=== PATIENT | female | born 1980 | race Caucasian/White ===

== ENCOUNTER 2018-12-17 14:34 | Emergency (ER) | payer BC, OTHER ==
[~2018-12-17] VITALS: Ht 172.7 cm; Wt 84.8 kg
[2018-12-17] MEDS ORDERED: SYNTHROID137 MCG ORAL (14:45)
[2018-12-17] MEDS ORDERED: ALBUTEROL0.63 MG/3 HHN (14:45)
[2018-12-17] MEDS ORDERED: HYDROXYCHLOROQ200 M1 PO (14:49)
[2018-12-17 14:54] VITALS: BP 137/60
--- NOTE | 2018-12-17 14:55 | NUR ---
ED Nurse Note: Pt came in from home due to flu-like symptoms: coughing, headache, bodyache, fever. No fever upon arrival. AOx4, HR 108, ERMD aware; other VSS. Monitor attached. Will cont to monitor.
[2018-12-17] MEDS ORDERED: Solu-MEDROL 125mg Inj IVP ONE (15:00)
[2018-12-17] MEDS ORDERED: Acetaminophen 500mg (ES) tab ORAL ONE (15:00)
--- NOTE | 2018-12-17 15:06 | Emergency Room Report ---
History of Present Illness General Chief Complaint: Flu Like Symptoms Source: Patient Present Illness HPI The patient presents with shortness of breath and chest pressure. She's been taking Tamiflu for 2 full days. She was seen at urgent care and got an x-ray and also a throat swab. They told her she had influenza. Her whole family is sick. She's not taking any cough syrup or steroids at this time. History of asthma. She's been using her nebulizer every 3-4 hours and feels that she's not wheezing at this time but still feels heaviness in her chest. She's also had muscle aches fevers and chills. She denies any productive cough. There's been no nausea vomiting or diarrhea. Her last period was one week ago and normal for her. Patient has a history of DVT and is not taking any anticoagulants. The patient also has a history of lupus. Allergies: Coded Allergies: LATEX, NATURAL RUBBER (Verified Allergy, Unknown, 12/17/18) Patient History Past Medical History: see triage record Social History: Denies: smoking, alcohol use, drug use Social History Narrative with 2 children Last Menstrual Period: A WEEK AGO Now: No Reviewed Nursing Documentation: PMH: Agreed; PSxH: Agreed Nursing Documentation-PMH Hx Asthma: Yes Review of Systems All Other Systems: negative except mentioned in HPI Physical Exam Vital Signs Date Time Temp Pulse Resp B/P (MAP) Pulse Ox O2 Delivery O2 Flow Rate FiO2 12/17/18 14:40 98.4 103 23 112/67 96 Room Air Sp02 EP Interpretation: reviewed, normal General Appearance: well appearing, no apparent distress, GCS 15 Head: normocephalic, atraumatic Eyes: bilateral eye normal inspection, bilateral eye PERRL ENT: normal pharynx, moist mucus membranes Neck: supple Respiratory: chest non-tender, rales - Left base, other - no wheezing Cardiovascular #1: no edema, tachycardia Cardiovascular #2: 2+ radial (R) Gastrointestinal: normal inspection, normal bowel sounds, non tender, no mass, non-distended Genitourinary: no CVA tenderness Musculoskeletal: back normal, gait/station normal, normal range of motion, no calf tenderness, Marco's Sign negative Neurologic: alert, oriented x3, grossly normal Psychiatric: mood/affect normal Skin: normal inspection, warm/dry Medical Decision Making Diagnostic Impression: Primary Impression: Bronchospasm Additional Impression: UTI (urinary tract infection) Qualified Codes: N30.00 - Acute cystitis without hematuria ER Course Patient presents with chest pressure and tachycardia while taking Tamiflu with fevers and chills. Differential includes pneumonia, influenza, exacerbation of asthma, pulmonary embolus, pericarditis amongst others. The patient will be evaluated with EKG, chest x-ray and labs including d-dimer and lactate. We will also be setting off an influenza swab. She's not wheezing at this time. She will receive a dose of Solu-Medrol and IV hydration. In addition Tylenol will be given. The fact she has a history of DVT and is tachycardic is disconcerting even though her oxygen saturation is 100%. EKG normal sinus rhythm without injury. Chest x-ray clear with no left sided infiltrate. Labs with normal CBC. CMP normal. D-dimer negative. Urinalysis with pyuria. Influenza swab negative. Rocephin is given. The patient requested breathing treatment and albuterol and Atrovent were given with good results. Discussed with patient results and treatment plan. She is remarkably improved and feels the pressure is better. Patient is stable for outpatient observation and treatment. Laboratory Tests Test 12/17/18 15:05 White Blood Count 10.1 K/UL (4.8-10.8) Red Blood Count 4.64 M/UL (4.20-5.40) Hemoglobin 13.8 G/DL (12.0-16.0) Hematocrit 41.6 % (37.0-47.0) Mean Corpuscular Volume 90 FL (80-99) Mean Corpuscular Hemoglobin 29.7 PG (27.0-31.0) Mean Corpuscular Hemoglobin Concent 33.1 G/DL (32.0-36.0) Red Cell Distribution Width 11.9 % (11.6-14.8) Platelet Count 282 K/UL (150-450) Mean Platelet Volume 7.8 FL (6.5-10.1) Neutrophils (%) (Auto) 77.9 % (45.0-75.0) H Lymphocytes (%) (Auto) 11.7 % (20.0-45.0) L Monocytes (%) (Auto) 8.4 % (1.0-10.0) Eosinophils (%) (Auto) 0.9 % (0.0-3.0) Basophils (%) (Auto) 1.1 % (0.0-2.0) Prothrombin Time 10.4 SEC (9.30-11.50) Prothrombin Time INR 1.0 (0.9-1.1) PTT 33 SEC (23-33) D-Dimer 0.39 mg/L FEU (0.00-0.49) Urine Color Yellow Urine Appearance Slightly cloudy Urine pH 6 (4.5-8.0) Urine Specific [place] 1.020 (1.005-1.035) Urine Protein 1+ (NEGATIVE) H Urine Glucose (UA) Negative (NEGATIVE) Urine Ketones 4+ (NEGATIVE) H Urine Blood 3+ (NEGATIVE) H Urine Nitrite Negative (NEGATIVE) Urine Bilirubin Negative (NEGATIVE) Urine Urobilinogen Normal MG/DL (0.0-1.0) Urine Leukocyte Esterase 2+ (NEGATIVE) H Urine RBC 5-10 /HPF (0 - 2) H Urine WBC 20-30 /HPF (0 - 2) H Urine Squamous Epithelial Cells Many /LPF (NONE/OCC) H Urine Bacteria Few /HPF (NONE) Urine HCG, Qualitative Negative (NEGATIVE) Sodium Level 139 MMOL/L (136-145) Potassium Level 3.5 MMOL/L (3.5-5.1) Chloride Level 102 MMOL/L (98-107) Carbon Dioxide Level 23 MMOL/L (21-32) Anion Gap 14 mmol/L (5-15) Blood Urea Nitrogen 10 mg/dL (7-18) Creatinine 0.9 MG/DL (0.55-1.30) Estimate Glomerular Filtration Rate > 60 mL/min (>60) Glucose Level 94 MG/DL (74-106) Lactic Acid Level 0.90 mmol/L (0.4-2.0) Calcium Level 9.2 MG/DL (8.5-10.1) Magnesium Level 1.9 MG/DL (1.8-2.4) Total Bilirubin 0.6 MG/DL (0.2-1.0) Aspartate Amino Transferase (AST) 10 U/L (15-37) L Alanine Aminotransferase (ALT) 22 U/L (12-78) Alkaline Phosphatase 42 U/L (46-116) L Total Creatine Kinase 22 U/L (26-308) L Pro-B-Type Natriuretic Peptide 33 pg/mL (0-125) Total Protein 7.8 G/DL (6.4-8.2) Albumin 3.7 G/DL (3.4-5.0) Globulin 4.1 g/dL Albumin/Globulin Ratio 0.9 (1.0-2.7) L Microbiology Date/Time Source Procedure Growth Status 12/17/18 15:05 Nasal Nares Influenza Types A,B Antigen (MIKAL) - Final Complete EKG Diagnostic Results Rate: normal Rhythm: NSR ST Segments: no acute changes - Prolonged QT corrected 482 ms Rhythm Strip Diag. Results Rhythm: no PVC's, no ectopy, other - Sinus tachycardia Chest X-Ray Diagnostic Results Chest X-Ray Diagnostic Results : Chest X-Ray Ordered: Yes # of Views/Limited/Complete: 1 View Indication: Other EP Interpretation: Yes Interpretation: no consolidation, no effusion, no pneumothorax Impression: No acute disease Electronically Signed by: Electronically signed by Jay Luong MD Last Vital Signs Date Time Temp Pulse Resp B/P (MAP) Pulse Ox O2 Delivery O2 Flow Rate FiO2 12/17/18 17:10 98.4 84 20 110/62 100 Room Air 21 Status: improved Disposition: HOME, SELF-CARE Condition: Improved Scripts Prednisone* (PREDNISONE*) 20 Mg Tablet 40 MG ORAL DAILY, #10 TAB Prov: Jay Luong MD 12/17/18 Acetaminophen (Tylenol) 325 Mg Tablet 650 MG ORAL Q6H PRN for Prn Pain/Headache/Temp > 101, #20 TAB 0 Refills Prov: Jay Luong MD 12/17/18 Cephalexin* (KEFLEX*) 500 Mg Capsule 500 MG ORAL EVERY 6 HOURS, #28 CAP Prov: Jay Luong MD 12/17/18 Guaifenesin/Codeine Phos* (ROBITUSSIN AC*) 118 Ml Liquid 5 ML ORAL Q6H PRN for For Cough, #90 ML 0 Refills Prov: Jay Luong MD 12/17/18 Ipratropium [place] 0.5MG/2.5ML (IPRATROPIUM BROMIDE 0.5MG/2.5ML) 0.2 Mg/1 Ml Solution 0.5 MG HHN Q6H PRN for Shortness of Breath, #28 EA Prov: Jay Luong MD 12/17/18 Jay Luong MD Dec 17, 2018 15:06
--- NOTE | 2018-12-17 15:12 | NUR ---
ED Nurse Note: Blood, urine, and swab done and sent to lab.
[2018-12-17 15:18] LABS: BASOPHILS % (AUTO) 1.1 % (0.0-2.0); EOSINOPHILS % (AUTO) 0.9 % (0.0-3.0); HEMATOCRIT 41.6 % (37.0-47.0); HEMOGLOBIN 13.8 G/DL (12.0-16.0); LYMPHOCYTES % (AUTO) 11.7 % (20.0-45.0); MEAN CORPUSCULAR VOLUME 90 FL (80-99); MONOCYTES % (AUTO) 8.4 % (1.0-10.0); NEUTROPHILS % (AUTO) 77.9 % (45.0-75.0); PLATELET COUNT 282 K/UL (150-450); RED BLOOD COUNT 4.64 M/UL (4.20-5.40); RED CELL DISTRIBUTION WIDTH 11.9 % (11.6-14.8); WHITE BLOOD COUNT 10.1 K/UL (4.8-10.8)
[2018-12-17 15:29] LABS: APPEARANCE,URINE SLIGHTLY CLOUDY; BILIRUBIN, URINE NEGATIVE (NEGATIVE); GLUCOSE, URINE (UA) NEGATIVE (NEGATIVE); KETONES,URINE 4+ (NEGATIVE); LEUKOCYTE ESTERASE ,URINE 2+ (NEGATIVE); NITRITE,URINE NEGATIVE (NEGATIVE); PH,URINE 6 (4.5-8.0); PROTEIN,URINE 1+ (NEGATIVE); UROBILINOGEN,URINE NORMAL MG/DL (0.0-1.0)
[2018-12-17 15:31] LABS: ANION GAP 14 mmol/L (5-15); BLOOD UREA NITROGEN 10 mg/dL (7-18); CALCIUM 9.2 MG/DL (8.5-10.1); CARBON DIOXIDE 23 MMOL/L (21-32); CHLORIDE 102 MMOL/L (98-107); CREATININE 0.9 MG/DL (0.55-1.30); POTASSIUM 3.5 MMOL/L (3.5-5.1); SODIUM 139 MMOL/L (136-145)
[2018-12-17 15:36] LABS: COLOR,URINE YELLOW
[2018-12-17 15:42] LABS: ALANINE AMINOTRANSFERASE 22 U/L (12-78); ALBUMIN 3.7 G/DL (3.4-5.0); ALBUMIN/GLOBULIN RATIO 0.9 (1.0-2.7); ALKALINE PHOSPHATASE 42 U/L (46-116); ASPARTATE AMINO TRANSFERASE 10 U/L (15-37); BILIRUBIN,TOTAL 0.6 MG/DL (0.2-1.0); CREATINE KINASE 22 U/L (26-308)
--- NOTE | 2018-12-17 15:53 | NUR ---
ED Nurse Note: X-ray at bedside for imaging.
[2018-12-17] MEDS ORDERED: Ipratropium 0.02% Inh Soln 2.5ml UD HHN ONE (16:00)
[2018-12-17] MEDS ORDERED: Albuterol ud Inhalation HHN ONE (16:00)
[2018-12-17] MEDS ORDERED: cefTRIAXone 1 GM in NS 55 ML IVPB ONE (16:00)
--- NOTE | 2018-12-17 16:00 | NUR ---
ED Nurse Note: RT at bedside for breathing tx.
[2018-12-17 16:17] VITALS: BP 103/56
[2018-12-17] MEDS ORDERED: CEPHALEXIN500 MG ORAL (16:52)
[2018-12-17] MEDS ORDERED: TYLENOL325 MG ORAL (16:52)
[2018-12-17] MEDS ORDERED: PREDNISONE20 MG ORAL (16:52)
[2018-12-17] MEDS ORDERED: IPRATROPIU0.2 MG/1 M HHN (16:52)
[2018-12-17] MEDS ORDERED: GUAIFENESIN-CO118 M1 ORAL (16:52)
[2018-12-17 17:09] VITALS: BP 110/62
--- NOTE | 2018-12-17 17:09 | NUR ---
ED Nurse Note: Pt is clear to be discharged by ERMD. Discharge paper and prescription given, pt verbalized understanding of discharge instruction. AOx4, VSS Wristband and IV line removed. Pt ambulated out with steady gait with all belongings.
[2018-12-17 17:10] VITALS: BP 110/62
--- NOTE | 2018-12-18 12:12 | Diagnostic Imaging Report ---
Indication: Dyspnea Technique: XRAY Chest 1v Comparison: None Findings: Heart size and mediastinal contours are within normal limits given technique. Question subtle peribronchial thickening. There is no focal consolidation, pneumothorax or pleural effusion. Osseous structures demonstrate no acute abnormality. Impression: Question subtle peribronchial thickening, a finding which may indicate small airway disease/bronchitis. Correlate clinically. No focal airspace consolidation, pleural effusion or pneumothorax.
--- NOTE | 2018-12-28 14:26 | Cardiology Report ---
APPROVED REPORT EKG Measurement Heart [id number] Normal sinus rhythm Prolonged QT Abnormal ECG
== END 2018-12-17 17:10 | disposition home or self-care (01) ==
LOC: EMR 15:05
DX: J98.01 Acute bronchospasm (principal); N39.0 Urinary tract infection, site not specified; J45.909 Unspecified asthma, uncomplicated; Z91.040 Latex allergy status
CPT/HCPCS: 36415; 71045; 80053; 81003; 81025; 82550; 83605; 83735; 83880; 85025; 85379; 85610; 85730; 86710; 87086; 93005; 94640; 94664; 96361; 96365; 96375; 99284; J0696; J2930

== ENCOUNTER 2018-12-19 12:00 | Emergency (ER) | payer OTHER, MEDICAID ==
[~2018-12-19] VITALS: Ht 172.7 cm; Wt 85.3 kg
[~2018-12-19 12:00] MED LIST: ALBUTEROL0.63 MG/3 HHN; CEPHALEXIN500 MG ORAL; GUAIFENESIN-CO118 M1 ORAL; HYDROXYCHLOROQ200 M1 PO; IPRATROPIU0.2 MG/1 M HHN; PREDNISONE20 MG ORAL; SYNTHROID137 MCG ORAL; TYLENOL325 MG ORAL
[2018-12-19] MEDS ORDERED: Oseltamivir 75mg cap ORAL ONE (12:15)
[2018-12-19] MEDS ORDERED: Promethazine/Codeine 5ml UD ORAL ONE (12:15)
[2018-12-19] MEDS ORDERED: Albuterol ud Inhalation HHN ONE (12:15)
[2018-12-19] MEDS ORDERED: Ketorolac 30mg Inj IV ONE (12:15)
--- NOTE | 2018-12-19 12:15 | NUR ---
ED Nurse Note: Pt came in from home due to SOB, chest tightness since last night around 2100, pt was in [facility] on 12/17/18 for the same symptoms, ruled out Bronchospasm, was prescribed breathing tx and Solu-medrol and Guaifenesin, symptoms have not gotten any better. SAT 100% RA upon arrival. HR 101, ERMD aware. Monitor attached. Will cont to monitor.
--- NOTE | 2018-12-19 12:17 | Emergency Room Report ---
History of Present Illness General Chief Complaint: Upper Respiratory Illness Source: Patient Present Illness HPI Patient presents with worsening chest tightness and shortness of breath Patient was here several days ago was found to have bronchitis possible early pneumonia patient reports that she was stopped on her Tamiflu Is on Keflex last night she felt increased pain and palpitation paramedics had responded to her house However patient was not brought to the emergency room today as her symptoms continue to worsen she presents to the ER denies any vomiting or diarrhea She has off-and-on fever and chills subjectively Patient reports pleurisy and tightness in the chest area Also sore throat denies any posterior neck pain Allergies: Coded Allergies: LATEX, NATURAL RUBBER (Verified Allergy, Unknown, 12/17/18) Patient History Past Medical History: see triage record Pertinent Family History: none Last Menstrual Period: 12/11/18 Now: No Reviewed Nursing Documentation: PMH: Agreed; PSxH: Agreed Nursing Documentation-PMH Hx Cardiac Problems: Yes - DVT Hx Asthma: Yes Review of Systems All Other Systems: negative except mentioned in HPI Physical Exam Vital Signs Date Time Temp Pulse Resp B/P (MAP) Pulse Ox O2 Delivery O2 Flow Rate FiO2 12/19/18 12:02 97.2 105 24 110/71 98 Room Air Sp02 EP Interpretation: reviewed, normal General Appearance: mild distress - Appears anxious Head: normocephalic, atraumatic Eyes: bilateral eye PERRL, bilateral eye EOMI ENT: hearing grossly normal, normal pharynx, TMs + canals normal, uvula midline Neck: full range of motion, supple, no meningismus, no bony tend Respiratory: no retraction, no accessory muscle use, crackles, other - Tachypneic Cardiovascular #1: normal peripheral pulses, regular rate, rhythm, no edema, no gallop, no JVD, no murmur Gastrointestinal: normal bowel sounds, non tender, soft, no mass, no organomegaly, non-distended, no guarding, no hernia, no pulsatile mass, no rebound Genitourinary: no CVA tenderness Musculoskeletal: normal inspection Neurologic: oriented x3, responsive, federal mediation [employer] III-XII nml as tested, motor strength/ tone normal, sensory intact Psychiatric: mood/affect normal Skin: normal color, no rash, warm/dry, palpation normal Lymphatic: normal inspection, no adenopathy Medical Decision Making Diagnostic Impression: Primary Impression: Reactive airway disease Additional Impression: Dyspnea ER Course Patient is a fairly complex patient with multiple differential to consideration including but not limited to cardiac cardiopulmonary and vascular emergencies Patient appears to have symptoms more consistent with influenza at this time therefore patient was provided with Tamiflu here repeat breathing treatments have been provided patient did better however on repeat evaluation still complains of Feeling pain in burning sensation to the mid chest area feels tightness and shortness of breath On further discussion patient does not feel comfortable going home at this time and therefore is requested for admission I spoke to Physician through [facility] and secondary to insurance purposes patient will be transferred Labs Test 12/19/18 12:30 White Blood Count 9.6 K/UL (4.8-10.8) Red Blood Count 4.69 M/UL (4.20-5.40) Hemoglobin 13.9 G/DL (12.0-16.0) Hematocrit 41.6 % (37.0-47.0) Mean Corpuscular Volume 89 FL (80-99) Mean Corpuscular Hemoglobin 29.7 PG (27.0-31.0) Mean Corpuscular Hemoglobin Concent 33.5 G/DL (32.0-36.0) Red Cell Distribution Width 11.6 % (11.6-14.8) Platelet Count 312 K/UL (150-450) Mean Platelet Volume 7.8 FL (6.5-10.1) Neutrophils (%) (Auto) 69.3 % (45.0-75.0) Lymphocytes (%) (Auto) 22.9 % (20.0-45.0) Monocytes (%) (Auto) 6.3 % (1.0-10.0) Eosinophils (%) (Auto) 0.4 % (0.0-3.0) Basophils (%) (Auto) 1.1 % (0.0-2.0) Sodium Level 143 MMOL/L (136-145) Potassium Level 3.5 MMOL/L (3.5-5.1) Chloride Level 107 MMOL/L (98-107) Carbon Dioxide Level 25 MMOL/L (21-32) Anion Gap 12 mmol/L (5-15) Blood Urea Nitrogen 11 mg/dL (7-18) Creatinine 0.9 MG/DL (0.55-1.30) Estimat Glomerular Filtration Rate > 60 mL/min (>60) Glucose Level 91 MG/DL (74-106) Calcium Level 9.5 MG/DL (8.5-10.1) Rhythm Strip Diag. Results EP Interpretation: yes Rate: 90 Rhythm: NSR, no PVC's, no ectopy Last Vital Signs Date Time Temp Pulse Resp B/P (MAP) Pulse Ox O2 Delivery O2 Flow Rate FiO2 12/19/18 12:02 97.2 105 24 110/71 98 Room Air Status: improved [facility] Condition: Serious Magnus Yee DO Dec 19, 2018 12:17
[2018-12-19 12:19] VITALS: BP 124/66
[2018-12-19 12:52] LABS: BASOPHILS % (AUTO) 1.1 % (0.0-2.0); EOSINOPHILS % (AUTO) 0.4 % (0.0-3.0); HEMATOCRIT 41.6 % (37.0-47.0); HEMOGLOBIN 13.9 G/DL (12.0-16.0); LYMPHOCYTES % (AUTO) 22.9 % (20.0-45.0); MEAN CORPUSCULAR VOLUME 89 FL (80-99); MONOCYTES % (AUTO) 6.3 % (1.0-10.0); NEUTROPHILS % (AUTO) 69.3 % (45.0-75.0); PLATELET COUNT 312 K/UL (150-450); RED BLOOD COUNT 4.69 M/UL (4.20-5.40); RED CELL DISTRIBUTION WIDTH 11.6 % (11.6-14.8); WHITE BLOOD COUNT 9.6 K/UL (4.8-10.8)
--- NOTE | 2018-12-19 12:52 | NUR ---
ED Nurse Note: RT at bedside for breathing tx.
[2018-12-19 13:07] LABS: ANION GAP 12 mmol/L (5-15); BLOOD UREA NITROGEN 11 mg/dL (7-18); CALCIUM 9.5 MG/DL (8.5-10.1); CARBON DIOXIDE 25 MMOL/L (21-32); CHLORIDE 107 MMOL/L (98-107); CREATININE 0.9 MG/DL (0.55-1.30); POTASSIUM 3.5 MMOL/L (3.5-5.1); SODIUM 143 MMOL/L (136-145)
[2018-12-19] MEDS ORDERED: HYDROXYCHLOROQ200 M1 PO (14:35)
[2018-12-19 14:54] VITALS: BP 113/65
--- NOTE | 2018-12-19 15:34 | NUR ---
ED Nurse Note: Telephone report given to ETHAN Spicer at [facility]. awaiting pt trasnportation.
[2018-12-19 15:38] VITALS: BP 107/62
--- NOTE | 2018-12-19 17:11 | NUR ---
ED Nurse Note: [facility] [address], arrived and will transport pt to [facility]. pt is aox4, denies pain, IV site intact, vss stables, all belongings are with pt. pt has signed transfer form.
[2018-12-19 17:13] VITALS: BP 111/70
[2018-12-19 17:14] VITALS: BP 111/70
== END 2018-12-19 17:15 | disposition short-term general hospital (02) ==
LOC: EMR 13:00
DX: J45.909 Unspecified asthma, uncomplicated (principal); Z91.040 Latex allergy status; Z86.718 Personal history of other venous thrombosis and embolism
CPT/HCPCS: 36415; 80048; 85025; 94640; 94664; 96361; 96374; 99285; J1885